=== PATIENT | male | born 1985 | race Caucasian/White ===

== ENCOUNTER 2018-03-20 09:58 | Emergency (ER) | payer OTHER ==
[~2018-03-20] VITALS: Ht 172.7 cm; Wt 95.3 kg
[2018-03-20 10:07] VITALS: Ht 172.7 cm; Wt 95.3 kg
[2018-03-20 12:25] VITALS: BP 144/74
== END 2018-03-20 12:25 | disposition home or self-care (01) ==
LOC: ED 09:58
DX: S09.8XXA Other specified injuries of head, initial encounter (principal); Z98.890 Other specified postprocedural states; W01.0XXA Fall on same level from slipping, tripping and stumbling without subsequent striking against object, initial encounter; Y93.89 Activity, other specified; Y92.89 Other specified places as the place of occurrence of the external cause; Y99.8 Other external cause status

== ENCOUNTER 2020-01-05 09:01 | Emergency (ER) | payer OTHER, SELFPAY ==
[~2020-01-05] VITALS: Ht 172.7 cm; Wt 81.6 kg
[2020-01-05 09:04] VITALS: Ht 172.7 cm; Wt 81.6 kg
[2020-01-05 09:40] VITALS: BP 142/88
== END 2020-01-05 09:40 | disposition home or self-care (01) ==
LOC: ED 09:01
DX: U07.1 COVID-19 (principal)
CPT/HCPCS: U0003-CS